=== PATIENT | male | born 1985 | race Two or more races ===

== ENCOUNTER 2017-01-07 12:45 | Emergency (ER) | payer SELFPAY ==
[~2017-01-07] VITALS: Ht 165.1 cm; Wt 75.2 kg
[2017-01-07 12:50] VITALS: BP 137/85
== END 2017-01-07 14:13 | disposition home or self-care (01) ==
LOC: ED 14:07
DX: R30.0 Dysuria (principal); Z00.00 Encounter for general adult medical examination without abnormal findings
CPT/HCPCS: 81003; 87491; 87591; 99284

== ENCOUNTER 2019-06-18 19:21 | Emergency (ER) | payer SELFPAY ==
[~2019-06-18] VITALS: Ht 154.9 cm; Wt 76.8 kg
[2019-06-18] MEDS ORDERED: METHOCARBAMOL 750 MG TABLET ONE (20:15)
[2019-06-18] MEDS ORDERED: ACETAMINOPHEN 325 MG TABLET ONE (20:15)
[2019-06-18] MEDS ORDERED: METHOCARBAMOL 750 MG TABLET PO ONE (20:30)
[2019-06-18] MEDS ORDERED: ACETAMINOPHEN 325 MG TABLET PO ONE (20:30)
[2019-06-18 21:00] VITALS: BP 132/71
== END 2019-06-18 21:02 | disposition home or self-care (01) ==
LOC: ED 20:55
DX: S39.012A Strain of muscle, fascia and tendon of lower back, initial encounter (principal); S16.1XXA Strain of muscle, fascia and tendon at neck level, initial encounter; V49.49XA Driver injured in collision with other motor vehicles in traffic accident, initial encounter; Y93.89 Activity, other specified; Y92.89 Other specified places as the place of occurrence of the external cause; Y99.8 Other external cause status
CPT/HCPCS: 72050; 72072; 72110; 99283; 99284